=== PATIENT | female | born 1975 | race Caucasian/White ===

== ENCOUNTER 2021-02-24 09:20 | Emergency (ER) | payer OTHER ==
[2021-02-24 09:57] LABS: BILIRUBIN,URINE NEGATIVE (NEGATIVE); GLUCOSE, URINE (UA) NEGATIVE (NEGATIVE); KETONES,URINE (UA) >=80 mg/dL (NEGATIVE); LEUKOCYTE ESTERASE, URINE NEGATIVE (NEGATIVE); NITRITE,URINE NEGATIVE (NEGATIVE); OCCULT BLOOD,URINE TRACE-LYSE (NEGATIVE); PH,URINE 7.5 PH (5.0-7.5); PROTEIN,URINE NEGATIVE (NEGATIVE); UROBILINOGEN,URINE 0.2 (NORMAL) E.U./dL (NORMAL)
[2021-02-24 10:04] LABS: CLARITY,URINE CLEAR (CLEAR); HCG UR QUAL NEGATIVE
[2021-02-24 10:15] LABS: BASOPHILS % (AUTO) 0.5 %; EOSINOPHILS # (AUTO) 0.1 10^3/uL (0.0-0.7); EOSINOPHILS % (AUTO) 1.1 %; HCT - HEMATOCRIT 40.2 % (37.0-47.0); HGB - HEMOGLOBIN 13.4 g/dL (12.0-16.0); LYMPHOCYTES # (AUTO) 0.6 10^3/uL (1.5-3.5); LYMPHOCYTES % (AUTO) 9.5 %; MEAN CORPUSCULAR HEMOGLOBIN 29.8 pg (27.0-31.0); MEAN CORPUSCULAR HGB CONC 33.3 g/dL (32.0-36.0); MEAN CORPUSCULAR VOLUME 89.3 fL (81.0-99.0); MEAN PLATELET VOLUME 9.7 fL (7.9-10.8); MONOCYTES # (AUTO) 0.3 10^3/uL (0.0-1.0); MONOCYTES % (AUTO) 5.5 %; NEUTROPHILS # (AUTO) 5.1 10^3/uL (1.5-6.6); NEUTROPHILS % (AUTO) 83.1 %; PLT - PLATELET COUNT 290 10^3/uL (130-450); WHITE BLOOD COUNT 6.2 x10^3/uL (4.8-10.8)
[2021-02-24 10:27] LABS: ALBUMIN 4.3 g/dL (3.2-5.5); ALBUMIN/GLOBULIN RATIO 1.5 (1.0-2.2); BILIRUBIN,TOTAL 0.8 mg/dL (0.2-1.0); CALCIUM 9.3 mg/dL (8.5-10.3); CREATININE 0.6 mg/dL (0.4-1.0); POTASSIUM 3.2 mmol/L (3.5-5.0); TOTAL PROTEIN 7.1 g/dL (6.7-8.2)
[2021-02-24] MEDS ORDERED: DEXAMETHASONE 10 MG/ML VIAL IVP STA (10:30)
[2021-02-24] MEDS ORDERED: KETOROLAC 30 MG/ML VIAL IVP STA (10:30)
[2021-02-24] MEDS ORDERED: SODIUM CHLORIDE 0.9% 1,000 ML IV STA (10:30)
--- NOTE | 2021-02-24 10:34 | ED Physician Documentation ---
PD HPI ABD PAIN - Stated complaint Stated Complaint: ABD PX - Chief complaint Chief Complaint: Abd Pain - History obtained from History obtained from: Patient, Family - History of Present Illness Timing - onset: Last night Timing - duration: Hours Timing - details: Gradual onset, Still present Quality: Cramping, Sharp, Pain Location: Epigastric Radiation: Left flank, Right flank Improved by: Laying still Worsened by: Position, Palpation Associated symptoms: Diarrhea. No: Fever, Nausea, Vomiting Similar symptoms before: Has not had sx before Recently seen: Not recently seen - Additional information Additional information: 46-year-old female began develop some abdominal cramping pain yesterday evening this is progressed throughout the night she was unable to sleep and she has had a bit of diarrhea with this she has not had these symptoms previously she is uncertain why this is occurred to her. She did have some handfuls of popcorn yesterday and she is allergic to corn. Usually if she eats corn she will have swelling and redness around her mouth. She has had some stomachache previously with eating corn but not to any significant extent. She does not appear to be allergic to corn syrup.She has not otherwise been ill recently takes no medications and has no significant past medical history. Review of Systems Constitutional: denies: Fever Eyes: denies: Decreased vision Ears: denies: Ear pain Nose: denies: Congestion Respiratory: denies: Cough GI: reports: Abdominal Pain, Diarrhea. denies: Vomiting : denies: Dysuria, Frequency PD PAST MEDICAL HISTORY - Present Medications Home Medications: Ambulatory Orders Medication Instructions Recorded Confirmed predniSONE [Deltasone] 40 mg PO DAILY 5 Days #10 tablet 02/24/21 - Allergies Allergies/Adverse Reactions: Allergies Allergy/AdvReac Type Severity Reaction Status Date / Time indomethacin [From Indocin] Allergy Unknown Verified 02/24/21 09:38 PD ED PE NORMAL - Vitals Vital signs reviewed: Yes - General General: Alert and oriented X 3, Well developed/nourished, Other (Appears to be in pain with occasional wincing) - HEENT HEENT: Atraumatic, PERRL, EOMI - Neck Neck: Supple, no meningeal sign, No bony TTP - Cardiac Cardiac: RRR, No murmur - Respiratory Respiratory: No respiratory distress, Clear bilaterally - Abdomen Abdomen: Soft, Non distended, Other (borborygmi is present epigastric tenderness is present but without garding or rebound. ) - Back Back: No CVA TTP, No spinal TTP - Derm Derm: Normal color, Warm and dry, No rash - Extremities Extremities: No deformity, No edema - Neuro Neuro: Alert and oriented X 3, busgirl 2-12 intact, No motor deficit, No sensory deficit, Normal speech Eye Opening: Spontaneous Motor: Obeys Commands Verbal: Oriented GCS Score: 15 - Psych Psych: Normal mood, Normal affect Results - Vitals Vitals: Vital Signs - 24 hr 02/24/21 02/24/21 09:30 12:15 Temperature 36.2 C L 36.5 C Heart Rate 76 79 Respiratory 18 16 Rate Blood Pressure 120/77 114/66 O2 Saturation 100 98 Oxygen O2 Source Room air - Labs Labs: Laboratory Tests 02/24/21 02/24/21 02/24/21 09:40 09:40 09:55 WBC 6.2 RBC 4.50 Hgb 13.4 Hct 40.2 MCV 89.3 MCH 29.8 MCHC 33.3 RDW 14.0 Plt Count 290 MPV 9.7 Neut # (Auto) 5.1 Lymph # (Auto) 0.6 L Callahan # (Auto) 0.3 Eos # (Auto) 0.1 Baso # (Auto) 0.0 Absolute Nucleated RBC 0.00 Nucleated RBC % 0.0 Sodium Potassium Chloride Carbon Dioxide Anion Gap BUN Creatinine Estimated GFR (MDRD) Glucose Calcium Total Bilirubin AST ALT Alkaline Phosphatase Total Protein Albumin Globulin Albumin/Globulin Ratio Lipase Urine Color YELLOW Urine Clarity CLEAR Urine pH 7.5 Ur Specific Warren 1.025 Urine Protein NEGATIVE Urine Glucose (UA) NEGATIVE Urine Ketones >=80 H Urine Occult Blood TRACE-LYSE Urine Nitrite NEGATIVE Urine Bilirubin NEGATIVE Urine Urobilinogen 0.2 (NORMAL) Ur Leukocyte Esterase NEGATIVE Ur Microscopic Review NOT INDICATED Urine Culture Comments NOT INDICATED Urine HCG, Qual NEGATIVE 02/24/21 09:55 WBC RBC Hgb Hct MCV MCH MCHC RDW Plt Count MPV Neut # (Auto) Lymph # (Auto) Callahan # (Auto) Eos # (Auto) Baso # (Auto) Absolute Nucleated RBC Nucleated RBC % Sodium 136 Potassium 3.2 L Chloride 103 Carbon Dioxide 21 Anion Gap 12.0 BUN 12 Creatinine 0.6 Estimated GFR (MDRD) 108 Glucose 114 H Calcium 9.3 Total Bilirubin 0.8 AST 15 ALT 11 Alkaline Phosphatase 47 Total Protein 7.1 Albumin 4.3 Globulin 2.8 Albumin/Globulin Ratio 1.5 Lipase 24 Urine Color Urine Clarity Urine pH Ur Specific Warren Urine Protein Urine Glucose (UA) Urine Ketones Urine Occult Blood Urine Nitrite Urine Bilirubin Urine Urobilinogen Ur Leukocyte Esterase Ur Microscopic Review Urine Culture Comments Urine HCG, Qual - Rads (name of study) ct ab/pel w Radiology: Prelim report reviewed (Impression: Incidental benign-appearing small liver lesions. No evidence of acute abdominal process.), EMP read indepedently, See rad report PD MEDICAL DECISION MAKING - ED course Complexity details: reviewed results, re-evaluated patient, considered differential, d/w patient, d/w family ED course: 46-year-old female with acute abdominal cramping after eating popcorn last night has no abnormality to her CT scan or her blood work. She is administered dexamethasone and toradal here in the emergency department as well as some fluid. Departure - Departure Disposition: 01 Home, Self Care Clinical Impression: Gastrointestinal food allergy, Hypokalemia Condition: Stable Instructions: ED Allergic React Food, ED Potassium Deficiency Follow-Up: Your, doctor [Other] Prescriptions: predniSONE [Deltasone] 40 mg PO DAILY 5 Days #10 tablet
[2021-02-24] MEDS ORDERED: IOVERSOL 320 100 ML VIAL IVP ONE ×2 (10:49→11:11)
--- NOTE | 2021-02-24 11:57 | CT Report ---
PROCEDURE: Abdomen/Pelvis W INDICATIONS: epigastric pain CONTRAST: IV CONTRAST: Optiray 320 ml: 100 PO CONTRAST: *NO PO CONTRAST TECHNIQUE: After the administration of intravenous contrast, 5 mm thick sections acquired from the diaphragms to the symphysis. 5 mm thick coronal and sagittal reformats were acquired. For radiation dose reducti on, the following was used: automated exposure control, adjustment of mA and/or kV according to corrina ent size. COMPARISON: None. FINDINGS: Image quality: Excellent. ABDOMEN: Lung bases: Lung bases are clear. Heart size is normal. Solid organs: Liver and spleen are normal in size and enhancement. There is a probable 1 cm right l obe hemangioma on image 32/3. There is a probable 1 cm cyst versus hemangioma in the left lobe on christine ge 25/3. There is focal fatty replacement adjacent to the ligament. Gallbladder is unremarkable. Varun iary system is non dilated. Pancreas enhances normally. No adrenal nodules. Kidneys demonstrate no rmal size and enhancement, without hydronephrosis. Peritoneum and bowel: Bowel loops demonstrate normal wall thickness and caliber. No free fluid or a ir. Nodes and vessels: No retroperitoneal or mesenteric adenopathy by size criteria. Aorta and inferior vena cava are normal in size. Miscellaneous: No ventral hernias. PELVIS: Genitourinary: Bladder wall thickness is normal. Miscellaneous: No inguinal hernias or adenopathy. Bones: No suspicious bony lesions. No vertebral body compression fractures. IMPRESSION: Incidental benign-appearing small liver lesions. 2. No evidence of acute abdominal process. Reviewed by: Fox Dobbins MD on 02/24/2021 10:55 AM GREG Approved by: Fox Dobbins MD on 02/24/2021 10:55 AM GREG Station ID: [id number]
[2021-02-24 12:50] VITALS: BP 114/66
== END 2021-02-24 13:15 | disposition home or self-care (01) ==
LOC: ED 09:20
DX: T78.1XXA Other adverse food reactions, not elsewhere classified, initial encounter (principal); R10.13 Epigastric pain; E87.6 Hypokalemia
CPT/HCPCS: 36415; 74177; 80053; 81003; 81025; 83690; 85025; 96361; 96374; 96375; 99283; Q9967; 81001; 87086